=== PATIENT | female | born 1950 | race Caucasian/White ===

== ENCOUNTER 2020-05-15 07:59 | Observation (INO) ==
[2020-05-14 12:11] LABS: Basophils # 0.1 10*3/uL (0.0-0.2); Basophils % 0.9 % (0.0-0.8); Eosinophils # 0.3 10*3/uL (0.0-0.87); Eosinophils % 2.5 % (0.00-10.9); Hematocrit 41.5 VOL% (35.7-47.0); Hemoglobin 12.7 GM/DL (12.0-16.0); Immature Granulocytes Absolute 0.11 #; Lymphocytes # 1.1 10*3/uL (1.4-4.0); Lymphocytes % 10.3 % (21.3-54.2); Mean Corpuscular HGB Conc 30.6 GM/DL (32-36); Mean Platelet Volume 10.3 FL (9.6-12.0); Monocytes % 8.2 % (1.7-12.7); Neutrophils % 77.1 % (38.7-73.9); Platelet Count 375 T/CUMM (130-400); Red Blood Count 4.46 MC/CUMM (3.8-5.5); Red Cell Distribution Width 14.2 % (9.3-17.3); White Blood Count 10.8 T/CUMM (4-12)
[2020-05-14 12:48] LABS: Albumin 3.7 G/DL (3.4-5.0); Bilirubin,Total 1.5 MG/DL (0.2-1.0); Calcium 8.9 MG/DL (8.5-10.1); Osmolality,Calculated 286.1 MOS/KG (273-304); Potassium 4.1 MMOL/L (3.5-5.1); Total Protein 6.8 G/DL (5.0-7.5)
[~2020-05-15 07:59] MED LIST: GENTAMICIN 80 MG/2 ML VIAL ONE
[2020-05-15] MEDS ORDERED: DIAZEPAM 5 MG TABLET PO ONE (08:15)
[2020-05-15] MEDS ORDERED: FAMOTIDINE 20 MG TABLET PO ONE (08:15)
[2020-05-15] MEDS ORDERED: LACTATED RINGERS 1,000 ML IV SCH (08:30)
[2020-05-15] MEDS ORDERED: fentaNYL 100 MCG/2 ML VIAL ONE (10:02)
[2020-05-15] MEDS ORDERED: MIDAZOLAM 2 MG/2 ML VIAL ONE (10:02)
[2020-05-15] MEDS ORDERED: propofoL 200 MG/20 ML VIAL IV ONE (10:03)
[2020-05-15] MEDS ORDERED: LIDOCAINE 2% 5 ML VIAL ONE (10:03)
[2020-05-15] MEDS ORDERED: ePHEDrine 50 MG/ML VIAL ONE (11:27)
[2020-05-15] MEDS ORDERED: ONDANSETRON 4 MG/2 ML VIAL ONE (11:49)
[2020-05-15] MEDS ORDERED: SEVOFLURANE 1 UNIT/15 MINUTE INH ONE (12:32)
[2020-05-15] MEDS ORDERED: PHENAZOPYRIDINE 95 MG TABLET PO ONE (12:48)
[2020-05-15] MEDS ORDERED: OXYBUTYNIN 5 MG TABLET PO ONE (12:49)
[2020-05-15] MEDS ORDERED: HYDROmorphone 2 MG TABLET PO STA (13:15)
[2020-05-15] MEDS ORDERED: KETOROLAC 30 MG/1 ML VIAL IV STA (14:19)
[2020-05-15] MEDS ORDERED: SODIUM CHLORIDE 0.9% 500 ML IV ONE (14:20)
[2020-05-15] MEDS ORDERED: KETOROLAC 30 MG/1 ML VIAL ONE (14:21)
[2020-05-15] MEDS: SODIUM CHLORIDE 0.9% 1,000 ML IV SCH (14:50)
[2020-05-15] MEDS ORDERED: ACETAMINOPHEN 325 MG TABLET PO PRN (15:00)
[2020-05-15] MEDS ORDERED: PROMETHAZINE 25 MG/1 ML VIAL IM PRN (15:00)
[2020-05-15] MEDS ORDERED: ONDANSETRON 4 MG/2 ML VIAL IV PRN (15:00)
[2020-05-15] MEDS ORDERED: OXYBUTYNIN 5 MG TABLET PO PRN (15:05)
[2020-05-15] MEDS ORDERED: KETOROLAC 30 MG/1 ML VIAL IV PRN (15:06)
[2020-05-15] MEDS: HYDROmorphone 2 MG/1 ML VIAL IV PRN (16:28)
[2020-05-16] MEDS: SODIUM CHLORIDE 0.9% 1,000 ML IV SCH ×2 (00:30→08:37)
[2020-05-16] MEDS: HYDROmorphone 2 MG/1 ML VIAL IV PRN (01:58)
[2020-05-16 06:06] LABS: Basophils # 0.1 10*3/uL (0.0-0.2); Basophils % 0.7 % (0.0-0.8); Eosinophils # 0.2 10*3/uL (0.0-0.87); Eosinophils % 1.9 % (0.00-10.9); Hematocrit 34.8 VOL% (35.7-47.0); Hemoglobin 10.8 GM/DL (12.0-16.0); Immature Granulocytes % 0.4 %; Immature Granulocytes Absolute 0.03 #; Lymphocytes # 0.8 10*3/uL (1.4-4.0); Lymphocytes % 9.1 % (21.3-54.2); Mean Platelet Volume 10.3 FL (9.6-12.0); Neutrophils % 75.9 % (38.7-73.9); Platelet Count 283 T/CUMM (130-400); Red Blood Count 3.74 MC/CUMM (3.8-5.5); Red Cell Distribution Width 14.6 % (9.3-17.3); White Blood Count 8.3 T/CUMM (4-12)
[2020-05-16] MEDS ORDERED: LEVOTHYROXINE 75 MCG TABLET PO SCH (06:30)
[2020-05-16 06:33] LABS: Calcium 7.2 MG/DL (8.5-10.1); Potassium 3.9 MMOL/L (3.5-5.1)
[2020-05-16 07:39] VITALS: BP 92/46
[2020-05-16] MEDS ORDERED: TAMSULOSIN 0.4 MG CAPSULE PO SCH (09:00)
[2020-05-16] MEDS ORDERED: predniSONE 5 MG TABLET PO SCH (09:00)
[2020-05-16] MEDS ORDERED: ATORVASTATIN 10 MG TABLET PO SCH (09:00)
[2020-05-16] MEDS ORDERED: LEVOFLOXACIN 500 MG TABLET PO SCH (09:00)
[2020-05-16] MEDS ORDERED: PANTOPRAZOLE 40 MG TABLET PO SCH (09:00)
[2020-05-18] MEDS ORDERED: GENTAMICIN INJ 160 MG in SODIUM CHLORIDE 0.9% 100 ML IV ONE (06:00)
[2020-05-18 16:21] LABS: Stone Analysis Interpretation SEE COMMENTS
== END 2020-05-16 08:41 | disposition home or self-care (01) ==
LOC: N.5E 07:59 → N.OR 07:59 → N.SDSINP 07:59 → N.5E 15:38
PROVIDERS: ADMIT Surgery; ATTEND Surgery